=== PATIENT | female | born 1980 | race Caucasian/White ===

== ENCOUNTER 2018-05-30 12:40 | Emergency (ER) | payer MEDICAID ==
[~2018-05-30] VITALS: Ht 165.1 cm; Wt 65.0 kg
[2018-05-30 13:33] LABS: BASOPHILS % 0.8 % (0.0-2.0); EOSINOPHILS % 4.2 % (0.0-5.0); HEMATOCRIT. 35.6 % (36.0-48.0); HEMOGLOBIN. 11.3 g/dL (12.0-16.0); LYMPHOCYTES % 27.1 % (20.0-50.0); MEAN CORPUSCULAR HEMOGLOBIN 21.8 pg (28.0-32.0); MEAN CORPUSCULAR VOLUME 68.7 fL (81.0-99.0); MEAN PLATELET VOLUME 8.7 fl (7.4-10.4); MONOCYTES % 5.1 % (2.0-8.0); NEUTROPHILS % 62.8 % (40.0-76.0); PLATELET 215 x1000/uL (130-400); RED BLOOD CELL COUNT 5.18 mill/uL (4.2-5.4); RED CELL DISTRIBUTION WIDTH 20.2 % (11.6-14.6)
[2018-05-30 13:39] LABS: CHLORIDE 100 mEq/L (98-107)
[2018-05-30 13:52] LABS: PLATELET ESTIMATE NORMAL
[2018-05-30] MEDS ORDERED: SODIUM CHLORIDE 0.9% 1,000 ML IV ONE (14:45)
[2018-05-30 16:45] LABS: HCG SCREEN NEGATIVE
[2018-05-30] MEDS ORDERED: IBUPROFEN 600MG TABLET PO ONE (17:15)
[2018-05-30] MEDS ORDERED: ACETAMINOPHEN 325MG TABLET PO ONE (17:15)
[2018-05-30] MEDS ORDERED: IOHEXOL-350 100 ML BOTTLE ONE (18:43)
[2018-05-30] MEDS ORDERED: POTASSIUM CHLORIDE 20MEQ TABLET SR PO ONE (18:45)
[2018-05-30 18:46] VITALS: BP 128/72
== END 2018-05-30 18:46 | disposition home or self-care (01) ==
LOC: ER 12:40
DX: R00.2 Palpitations (principal); R07.89 Other chest pain; E11.9 Type 2 diabetes mellitus without complications; Z88.6 Allergy status to analgesic agent
CPT/HCPCS: 36415; 71045; 71275; 80053; 81025; 83880; 84484; 84703; 85025; 85379; 93005; 99285; J7030; Q9967; Z7610

== ENCOUNTER 2025-08-05 17:30 | Emergency (ER) | payer MEDICAID, OTHER ==
[~2025-08-05] VITALS: Ht 162.6 cm; Wt 107.0 kg
[2025-08-05 17:35] VITALS: TEMP 36.9; O2SAT 100
[2025-08-05 18:29] LABS: HEMATOCRIT. 30.7 % (36.0-48.0); HEMOGLOBIN. 9.2 g/dL (12.0-16.0); MEAN PLATELET VOLUME 8.1 fl (7.4-10.4); PLATELET 433 x1000/uL (130-400); RED BLOOD CELL COUNT 4.67 mill/uL (4.2-5.4); RED CELL DISTRIBUTION WIDTH 21.4 % (11.6-14.6)
[2025-08-05 18:30] LABS: ADD RBC MORPHOLOGY YES
[2025-08-05 18:47] LABS: PLATELET ESTIMATE INCREASED
[2025-08-05 19:15] LABS: HCG SCREEN NEGATIVE
[2025-08-05 20:22] LABS: CREATININE 0.7 mg/dL (0.6-1.0); UREA NITROGEN BLOOD 15 mg/dL (9-23)
[2025-08-05] MEDS ORDERED: MECL-299 MT (20:29)
[2025-08-05 20:40] VITALS: BP 105/64; PULSE 83; RESP 16; O2SAT 98
[2025-08-05 21:20] LABS: CLARITY URINE CLEAR (CLEAR); GLUCOSE URINE 3+ (NEGATIVE); KETONES URINE NEGATIVE (NEGATIVE); LEUKOCYTE ESTERASE URINE NEGATIVE (NEGATIVE); NITRITE URINE NEGATIVE (NEGATIVE); OCCULT BLOOD URINE NEGATIVE (NEGATIVE); PH URINE 5.5 (4.5-8.0); PROTEIN URINE NEGATIVE (NEGATIVE); SPECIFIC GRAVITY URINE 1.023 (1.005-1.030); UROBILINOGEN URINE 0.2 E.U./dL (0.2-1.0)
[2025-08-05 22:20] LABS: COLOR URINE STRAW (YELLOW)
[2025-08-05 22:22] LABS: BACTERIA URINE NONE SEEN; RBC URINE NONE SEEN /hpf (0-2); SQUAMOUS EPITHELIAL CELL URINE RARE /lpf (RARE/1+); WBC URINE NONE SEEN /hpf (0-2)
== END 2025-08-05 20:41 | disposition home or self-care (01) ==
LOC: ER 17:30
DX: R42 Dizziness and giddiness (principal); E11.65 Type 2 diabetes mellitus with hyperglycemia
CPT/HCPCS: 36415; 71045; 80048; 81003; 84703; 85025; 93005; 99284; 99285